=== PATIENT | male | born 1965 | race Caucasian/White ===

== ENCOUNTER 2025-04-28 07:33 | Outpatient (CLI) | payer OTHER | END 2025-04-28 07:34 | disposition home or self-care (01) | LOC: SCSMRI 07:33 | PROVIDERS: ATTEND Family Medicine | DX: S49.92XA Unspecified injury of left shoulder and upper arm, initial encounter (principal); M75.122 Complete rotator cuff tear or rupture of left shoulder, not specified as traumatic ==